=== PATIENT | female | born 1980 | race Caucasian/White ===

== ENCOUNTER 2024-09-27 13:28 | Inpatient (IN) | payer BC ==
[2024-09-27 13:53] VITALS: BMI 28.0
[2024-09-27] MEDS ORDERED: ACETAMINOPHEN 325 MG TABLET (FP) PO PRN (15:29)
[2024-09-27] MEDS ORDERED: guaiFENesin 600 MG TABLET.ER (FP) PO PRN (15:29)
[2024-09-27] MEDS ORDERED: IBUPROFEN 400 MG TABLET (FP) PO PRN (15:29)
[2024-09-27] MEDS ORDERED: MAGNESIUM HYDROX 2400MG/30ML ORAL SUSPENSION 30 ML CUP PO PRN (15:29)
[2024-09-27] MEDS ORDERED: LOPERAMIDE HCL 2 MG CAPSULE PO PRN (15:29)
[2024-09-27] MEDS ORDERED: MAG HYDROX/AL HYDROX/SIMETH 30 ML UNIT-DOSE CUP PO PRN (15:29)
[2024-09-27] MEDS ORDERED: BENZOCAINE/MENTHOL (CHLORASEPTIC ) LOZENGE MM PRN (15:29)
[2024-09-27] MEDS ORDERED: NALOXONE (NARCAN) HCL 4 MG/0.1 ML SPRAY NS PRN (15:29)
[2024-09-27] MEDS ORDERED: BENZONATATE 200 MG CAPSULE PO PRN (15:29)
[2024-09-27] MEDS ORDERED: POLYETHYLENE GLYCOL (HEALTHYLAX) 3350 17 GM PACKET PO PRN (15:29)
[2024-09-27] MEDS: traZODone HCL 50 MG TABLET (FP) PO ONE (22:00)
[2024-09-27] MEDS: THIAMINE 100 MG TABLET PO SCH (22:27)
[2024-09-27] MEDS: ACAMPROSATE CALCIUM 333 MG TABLET.DR PO SCH (22:27)
[2024-09-27] MEDS: MELATONIN 5 MG TABLETS PO SCH (22:28)
[2024-09-27] MEDS: MIRTAZAPINE 15 MG TABLET (FP) PO SCH (22:28)
[2024-09-27] MEDS: hydrOXYzine PAMOATE 25 MG CAPSULE (FP) PO PRN (22:31)
[2024-09-27] MEDS: NICOTINE POLACRILEX 2 MG GUM BUC PRN (22:31)
[2024-09-28] MEDS: NICOTINE POLACRILEX 2 MG LOZENGE BC PRN (06:44)
[2024-09-28] MEDS: PRENATAL VITAMINS W/ FOLIC ACID TABLET (FP) PO SCH (09:53)
[2024-09-28 10:06] LABS: MCHC 30.9 g/dl (32.2-35.5); MEAN CELL VOLUME 98.3 fl (79.4-94.8); MEAN PLT VOLUME 10.4 fl (9.4-12.3); RDW 21.0 % (12.2-17.1)
[2024-09-28 10:32] LABS: CO2 24.0 mmol/L (21-32); GLUCOSE,RANDOM 103.0 mg/dL (74-106)
[2024-09-28 10:34] LABS: SGOT/AST 88.0 U/L (15-37); SGPT/ALT 132.0 U/L (13-61)
[2024-09-28 10:35] LABS: CREATININE 0.6 mg/dL (0.55-1.3)
[2024-09-28 10:36] LABS: TOT PROT 7.0 g/dl (6.4-8.2)
[2024-09-28 10:37] LABS: ALK PHOS 329.0 U/L (45-117)
[2024-09-28 11:06] LABS: SYPHILIS W/ RPR CONF NON-REACTIVE (NONREACTIVE)
[2024-09-28 11:38] LABS: HCV DIAGNOSTIC IN-HOUSE W/RFLX NON-REACTIVE (NONREACTIVE)
[2024-09-28] MEDS: LURASIDONE HCL 20 MG TABLET PO SCH (17:25)
[2024-09-28] MEDS: traZODone HCL 100 MG TABLET (FP) PO SCH (22:38)
[2024-09-29] MEDS: IBUPROFEN 600 MG TABLET (FP) PO PRN (15:49)
[2024-10-01] MEDS ORDERED: TUBERCULIN PPD 5 TU/0.1ML VIAL ID ONE (17:56)
[2024-10-02] MEDS: LURASIDONE HCL 20 MG TABLET PO SCH (10:26)
[2024-10-02] MEDS ORDERED: SELENIUM SULFIDE 2.25% 180 ML SHAMPOO TP PRN (11:42)
[2024-10-02] MEDS ORDERED: SELENIUM SULFIDE 2.5% LOTION 4 OZ. TP PRN (11:44)
[2024-10-02 13:00] LABS: EPI CELLS >36 /uL (0-25.1); HYALINE CASTS 0 /uL (0-3.1); URINE APPEARANCE TURBID; URINE BACTERIA 4272 /uL (0-1359); URINE BILIRUBIN NEGATIVE (NEGATIVE); URINE COLOR YELLOW; URINE GLUCOSE (UA) NEGATIVE (NEGATIVE); URINE KETONE NEGATIVE (NEGATIVE); URINE LEUK ESTERASE TRACE (NEGATIVE); URINE NITRITE NEGATIVE (NEGATIVE); URINE PROTEIN NEGATIVE (NEGATIVE); URINE UROBILINOGEN 0.2 mg/dL (0.2-1.0); URINE WBC 243 /uL (0-25.8)
[2024-10-02 13:21] LABS: URINE RBC 20.7 /uL (0-23.9)
[2024-10-07] MEDS: LIDOCAINE 5% TOPICAL PATCH TP SCH (13:15)
[2024-10-07] MEDS: LIDOCAINE PATCH REMOVAL MC SCH (21:28)
[2024-10-08] MEDS: SELENIUM SULFIDE 2.25% 180 ML SHAMPOO TP PRN (06:27)
[2024-10-08 11:53] LABS: SGPT/ALT 44.0 U/L (13-61)
[2024-10-08 11:55] LABS: TOT PROT 6.8 g/dl (6.4-8.2)
[2024-10-08 11:57] LABS: GLUCOSE,RANDOM 131.0 mg/dL (74-106)
[2024-10-08 12:00] LABS: CO2 24.0 mmol/L (21-32); CREATININE 0.7 mg/dL (0.55-1.3); SGOT/AST 20.0 U/L (15-37)
[2024-10-08 12:04] LABS: ALK PHOS 170.0 U/L (45-117)
[2024-10-11] MEDS ORDERED: NICOTINE POLACRILEX 2 MG GUM BUC PRN (08:29)
[2024-10-11] MEDS: NICOTINE POLACRILEX 4 MG LOZENGE BC PRN (12:49)
[2024-10-12] MEDS: NICOTINE POLACRILEX 4 MG GUM BUC PRN (12:46)
[2024-10-22 06:51] VITALS: RESP 16
[2024-10-24 07:00] VITALS: BP 100/64; PULSE 84; TEMP 97
== END 2024-10-24 10:15 | disposition other institution (70) | DRG 772 ==
LOC: YASAS 13:28 → Y3NR 21:14 → Y5N 10-01 11:28
PROVIDERS: ADMIT Neuromusculoskeletal Medicine & OMM; ATTEND Psychiatry & Neurology Pain Medicine
PROC: HZ42ZZZ Group Counseling for Substance Abuse Treatment, Cognitive-Behavioral (ICD-10-PCS; principal; 2024-09-27)
DX: F10.20 Alcohol dependence, uncomplicated (principal); F14.20 Cocaine dependence, uncomplicated; F15.20 Other stimulant dependence, uncomplicated; F17.210 Nicotine dependence, cigarettes, uncomplicated; F19.282 Other psychoactive substance dependence with psychoactive substance-induced sleep disorder; F19.280 Other psychoactive substance dependence with psychoactive substance-induced anxiety disorder; F19.24 Other psychoactive substance dependence with psychoactive substance-induced mood disorder; F41.9 Anxiety disorder, unspecified; F32.A Depression, unspecified; D64.9 Anemia, unspecified; G47.00 Insomnia, unspecified; K76.0 Fatty (change of) liver, not elsewhere classified; Z87.19 Personal history of other diseases of the digestive system; Z59.00 Homelessness unspecified
CPT/HCPCS: 36415; 80053; 80305; 80307; 81003; 81025; 85027; 86780; 86803; 87811; 93005; 93010